=== PATIENT | female | born 1985 | race Caucasian/White ===

== ENCOUNTER 2025-08-25 11:20 | Emergency (ER) | payer OTHER, SELFPAY ==
--- NOTE | ~2025-08-25 | XR_ITS ---
CLINICAL HISTORY: decreased heart rate 2 view chest x-ray. Comparison: None Findings: Normal lung volumes. Lungs are clear. No pneumothorax or pleural effusion. Heart size normal. No passive venous congestion. No midline shift or tracheal deviation. No acute fracture. Impression: 1. No acute cardiopulmonary disease. This document has been electronically signed by: Shivam De La Garza MD on 08/25/2025 12:28:53
[2025-08-25 11:36] VITALS: BP 129/75; PULSE 55; RESP 20; TEMP 36.3; O2SAT 99; BMI 28.3
--- NOTE | 2025-08-25 11:36 | ED_ITS ---
HPI - General Adult General Chief complaint: Dizziness Stated complaint: low heart rate, faint,dizzy Time Seen by Provider: 08/25/25 12:01 Source: patient, RN notes reviewed and old records reviewed Mode of arrival: ambulatory Limitations: no limitations History of Present Illness ED Provider: [facility] narrative: Patient is a 40-year-old female with history of migraines presenting to the emergency department stating that her smart watch woke her at 3 a.m. to notify her that her heart rate was below 40 beats per minute. She also notes that yesterday she was at [facility] and her watch alerted her there as well regarding bradycardia. States she was walking around at the time and did feel somewhat lightheaded and nauseated but chalked it up to being in the sun and having 2 alcoholic drinks. She denies current chest pain, palpitations or dyspnea. She does report having recent intermittent lightheadedness. She has never seen a fireman. MD complaint: bradycardia Onset (ago): day(s) Related Data Allergies Allergy/AdvReac Type Severity Reaction Status Date / Time No Known Allergies Allergy Verified 08/25/25 11:38 Review of Systems 2 Review of Systems: as per hpi Yes all other systems are reviewed and are negative Constitutional: Constitutional: Reports as per HPI [facility] Social History Social History Advance Directives: No Advance Directives Information Provided: No Do you have a plan to hurt others: No Plan Physical Exam ED Vital Signs: Vital Signs - 24 hr 08/25/25 11:36 Temperature 97.4 F Pulse Rate 55 Respiratory Rate 20 Blood Pressure 129/75 Pulse Oximetry 99 Oxygen Delivery Method Room Air BMI result Body Mass Index 28.3 Vital signs have been reviewed and appear to be correct. Blood pressure normal. Heart rate normal. Respiratory rate normal. Temperature normal. Oxygen saturation normal. Const General: cooperative, healthy appearing and no acute distress Orientation/consciousness: oriented to person, oriented to place, oriented to time and patient oriented x3 Limitations: no limitations HENMT Head: Yes normocephalic and Yes atraumatic Ears: external ears normal General nose exam: Normal external nose present Face and sinus: Yes face symmetric Mouth: oropharynx normal and moist mucous membranes Throat: Yes uvula midline Eyes Pupils: Equal, round and reactive pupils present Neck Neck: Yes normal visual inspection and Yes supple Resp Effort & Inspection: normal respiratory effort and able to speak in complete sentences Auscultation: clear to auscultation bilaterally Cardio Rate: regular rate Rhythm: regular rhythm Heart sounds: S1 normal heart sound present and S2 normal heart sound present GI Palpation (GI): Soft to palpation and nontender Auscultation: normoactive bowel sounds General: Yes no CVA tenderness Back/Spine/Pelvis Back: no CVA tenderness Skin General skin exam: elasticity normal and turgor normal Neuro General: oriented to person, oriented to place, oriented to time, patient oriented x3, moves all extremities, no focal motor deficits and CN's II-XI intact bilaterally Cranial nerves: Yes Equal, round and reactive pupils present Cognition (Neuro): normal cognition Extrem General: Yes full ROM, Yes no pedal edema and Yes no calf tenderness Psych Mental Status: mental status grossly normal Affect: normal affect Thought process: Normal thought process present Course Course Course Narrative: Rapid medical examination performed in triage by Carmelita Schroeder PA-C. Patient is a 40 year old assigned female at presenting to the emergency department with episodes of decreased heart rate. Detailed physical exam and review of systems are deferred to the speech and language clinician. EKG, labs, imaging ordered. Patient placed back in the waiting room pending room availability and results. Medical Decision Making Medical Decision Making MDM Narrative: Patient is a 40-year-old female with history of migraines presenting to the emergency department stating that her smart watch woke her at 3 a.m. to notify her that her heart rate was below 40 beats per minute. On exam patient is awake, A+Ox3, mildly bradycardic, VS otherwise WNL, afebrile, normal neurological exam without focal deficits, physical exam findings as above. Given reported symptoms and physical exam findings, initial differential includes but is not limited to cardiac arrhythmia, electrolyte abnormality, abnormal thyroid level. EKG shows NSR with sinus arrhythmia, rate 61bpm. Labs unremarkable, no significant electrolyte abnormalities, negative troponin, normal TSH. X-ray chest notable for no evidence of pneumonia, pneumothorax, cardiomegaly. My interpretation is in agreement with the radiologist's interpretation. Feel patient is stable for discharge with referral to cardiology for likely Holter monitor. Discussed with patient that if she becomes dizzy or lightheaded, she should sit or lay down to prevent fall/secondary injury. Return precautions discussed at bedside. Advised patient to ensure adequate fluid intake, including fluids with electrolytes. Patient verbalized understanding of and agreement with plan. Differential Diagnosis Differential Diagnoses: The differential diagnosis associated with the presentation includes as per [facility] Admission/Observation Consideration of admission/observation: Escalation of care including admission/observation considered Patient would have been admitted to the hospital and transferred to appropriate facility had their clinical presentation warranted hospital admission. Lab Data [facility] Lab Attestation statement: I reviewed the patient's lab results. as per [facility] 08/25/25 11:54 08/25/25 11:54 Labs: Lab Results 08/25/25 Range/Units 11:54 WBC 4.1 L (4.8-10.8) X10*3/uL RBC 4.77 (4.20-5.50) X10*6/uL Hgb 14.0 (12.0-16.0) g/dl Hct 42.5 (37.0-47.0) % MCV 89.1 (80.0-98.0) fL MCH 29.4 (27.0-33.0) pg MCHC 32.9 (31.0-35.0) g/dl RDW 12.4 (11.0-16.0) % Plt Count 274 (160-400) X10*3/uL MPV 9.8 (9.4-12.3) fL Immature Gran % (Auto) 0.0 (0.0-0.4) % Neut % (Auto) 42.2 L (45-73) % Lymph % (Auto) 40.6 H (20-40) % [place] % (Auto) 13.3 H (2-11) % Eos % (Auto) 2.2 (0-4) % Baso % (Auto) 1.7 (0-2) % Lymph # (Auto) 1.7 (1.2-4.9) X10*3/uL [place] # (Auto) 0.6 (0.1-1.2) X10*3/uL Eos # (Auto) 0.1 (0.0-0.4) X10*3/uL Baso # (Auto) 0.1 (0.0-0.2) X10*3/uL Abs Immat Gran (auto) 0.00 (0.00-0.03) X10*3/uL Absolute Neuts (auto) 1.8 L (2.0-8.3) x10*3/uL Absolute Nucleated RBC 0.000 (0.0-0.012) X10*3/uL Nucleated RBC % (auto) 0.0 (0.0-0.2) /100WBC PT 11.2 (10.9-12.4) SEC INR 1.0 (0.9-1.1) Sodium 142 (135-145) mmol/L Potassium 3.8 (3.3-5.1) mmol/L Chloride 108 (96-108) mmol/L Carbon Dioxide 27 (22-29) mmol/L Anion Gap 11 L (12-20) BUN 7 L (9-16) mg/dL Creatinine 0.82 (0.5-1.4) mg/dL Estim Creat Clear Calc 91.2 Estimated GFR > 60 Random Glucose 87 (60-115) mg/dL Calcium 9.1 (8.4-10.2) mg/dL Magnesium 2.1 (1.6-2.6) mg/dL Total Bilirubin 0.6 (0.0-1.0) mg/dL AST 20 (5-31) U/L ALT 15 (0-31) U/L Alkaline Phosphatase 61 (39-117) U/L Troponin I High Sens < 2.7 (<3.5-17.0) ng/L Total Protein 7.0 (6.5-8.0) g/dL Albumin 4.5 (3.5-5.0) g/dL TSH 1.29 (0.32-4.0) uIU/mL Beta HCG, Quant < 2 mIU/mL Independent Interpretation I performed an independent interpretation of an: EKG (normal sinus rhythm with sinus arrhythmia, rate 61bpm, normal [place] interval and QTc) and Plain X-Ray Interpretation: Chest x-ray without evidence of pneumonia, pneumothorax or cardiomegaly Radiology Impression Discussion of test interpretation with radiology: I have reviewed the radiologist's reading. Radiologist Impression: 2 view chest x-ray. Comparison: None Findings: Normal lung volumes. Lungs are clear. No pneumothorax or pleural effusion. Heart size normal. No passive venous congestion. No midline shift or tracheal deviation. No acute fracture. Impression: 1. No acute cardiopulmonary disease. External Record Review External record reviewed: Inpatient record, Office record and Outpatient record Discharge Plan Discharge Clinical Impression: Bradycardia Patient Disposition: Home, Self-Care Instructions: Bradycardia (ED) Additional Instructions: You were evaluated in the emergency today for episodes of bradycardia, which is a slower than normal heart rate. Your evaluation including EKG, labs, chest x- ray did not show evidence of any conditions requiring emergent medical treatment at this time. You are being referred to cardiology for further evaluation of your symptoms. This will likely include wearing a Holter monitor which records your heart rhythm continuously for 1 to several days. Return to the emergency department if you develop chest pain, shortness of breath or difficulty breathing, severe dizziness or lightheadedness, fainting, or any other new or concerning symptoms. We recommend that you follow up with your primary care provider as well. Referrals: [facility] [Provider Group] Referral Note: intermittent bradycardia Clinical Impression: Bradycardia Print Language: Lao
--- NOTE | 2025-08-25 11:37 | ECG_ITS ---
Test Reason : CHEST PAIN Blood Pressure : */* mmHG Vent. Rate : 61 BPM Atrial Rate : 61 BPM P-R Int : 132 ms QRS Dur : 80 ms QT Int : 400 ms P-R-T Axes : 54 45 42 degrees QTcB Int : 402 ms Normal sinus rhythm with sinus arrhythmia Normal ECG No previous ECGs available Referred By: Carmelita Schroeder Electronically Signed By: Melecio Paige
[2025-08-25 11:59] LABS: Hematocrit 42.5 % (37.0-47.0); Hemoglobin 14.0 g/dl (12.0-16.0); Imm Gran Abs Auto 0.00 X10*3/uL (0.00-0.03); Imm Gran Pct Auto 0.0 % (0.0-0.4); Lymphocytes Absolute Auto 1.7 X10*3/uL (1.2-4.9); MANUAL DIFF FLAG NO; Mean Corpuscular HGB Conc 32.9 g/dl (31.0-35.0); Mean Corpuscular Hemoglobin 29.4 pg (27.0-33.0); Mean Corpuscular Volume 89.1 fL (80.0-98.0); NRBC Abs Auto 0.000 X10*3/uL (0.0-0.012); NRBC Pct Auto 0.0 /100WBC (0.0-0.2); Platelet Count 274 X10*3/uL (160-400); Red Blood Count 4.77 X10*6/uL (4.20-5.50); White Blood Count 4.1 X10*3/uL (4.8-10.8)
[2025-08-25 12:05] LABS: INTERNATIONAL NORM RATIO 1.0 (0.9-1.1); Prothrombin Time 11.2 SEC (10.9-12.4)
[2025-08-25 12:14] LABS: Alanine Aminotransferase 15 U/L (0-31); Albumin Level 4.5 g/dL (3.5-5.0); Alkaline Phosphatase 61 U/L (39-117); Anion Gap 11 (12-20); Aspartate Amino Transferase 20 U/L (5-31); Blood Urea Nitrogen 7 mg/dL (9-16); Calcium 9.1 mg/dL (8.4-10.2); Carbon Dioxide 27 mmol/L (22-29); Chloride 108 mmol/L (96-108); Creatinine Clr Calc Pharmacy 91.2; Estimated Glomerular Filt Rate > 60; Magnesium 2.1 mg/dL (1.6-2.6); Potassium 3.8 mmol/L (3.3-5.1); Sodium 142 mmol/L (135-145); Total Protein 7.0 g/dL (6.5-8.0)
[2025-08-25 12:24] LABS: Troponin-I High Sensitivity < 2.7 ng/L (<3.5-17.0)
--- OUTSIDE RECORDS SUMMARY | 2025-08-25 12:24 | XMS_ITS | Encounter Summary ---
Author Organization [facility] Address [address] [place] [id number] Phone Care Team Providers Care Detention Officer Name Role Phone Pablo Bal DO Primary Care Provider Encounter Details Date Type Department Care Team (Late st Contact Info) Description 04/11/2025 Procedure Pass [facility], [address] [address] Social History Tobacco Use Types Packs/Day Years Used Date Smoking Tobacco: Never Passive Smoke Exposure: Current Smokeless Tobacco: Never Alcohol Use Standard Drinks/Week Comments Yes 0 (1 standard drink = 0.6 oz pur e alcohol) soc Child or Family Care Answer Date Record ed Do you have problems with on e of the following making it difficult for you to work, study, or receive health care? No 04/05/2025 Education Answer Date Recorded Are you interested in help w ith more adult education (for example, completing high school, GED, job training, learning the [place] language, technical skills, or developing parenting skills)? No 04/05/2025 Are you concerned about learning? Not on file 04/05/2025 No 04/05/2025 Yes 04/05/2025 Food Answer Date Recorded Within the past 6 months we worried whether our food would run out before we got money to buy more. Never True 04/05/2025 Within the past 6 months the food we bought just didn't last and we didn't have enough money to get more. Never True Residential Stability Answer Date Recor ded What is your housing situation today? I have aubrey sing 04/05/2025 How many times have you moved in the past 12 tue ths? One time 04/05/2025 Paying for Meds Answer Date Recorded Do you have trouble paying for medicines? No 04/05/2025 Paying Utility Bills Answer Date Record ed Do you have trouble paying your heating or elect ricity bill? No 04/05/2025 Transportation Answer Date Recorded Has the lack of transportati on kept you from medical appointments or from getting medications? No 04/05/2025 Unemployment Answer Date Recorded Are you currently unemployed or working on a part-time or temporary basis, and looking for work? No 04/05/2025 Digital Access Answer Date Recorded No 04/05/2025 Yes 04/05/2025 Do you have reliable internet access at home? Ye s 04/05/2025 Do you have a device (e.g., phone, tablet, computer) with a working camera? Yes 04/05/2025 Intimate Partner Violence Answer Date R ecorded Denied Basic Needs Not on file 04/05/2025 In the past 12 months have y ou been in a relationship with a person who hurts, threatens, or tries to control you? No 04/05/2025 Worried food would run out Not on file 04/05 In the past 12 months have y ou been in a relationship with a person who hurts, threatens, or tries to control you? No 04/05/2025 Comments No Sex and Gender Information Value Date Recorded Sex Assigned at Female 08/14/2024 3:45 PM EDT Legal Sex Female 9:13 PM EDT Gender Identity Female 08/14/2024 3:45 PM EDT Sexual Orientation Straight 08/14/2024 3: 45 PM EDT documented as of this encounter Plan of Treatment Upcoming Encounters Date Type Department Care Team (Late st Contact Info) Description 05/26/2026 8:00 AM EDT Office [facility] [address] [place] [address] [place] [address] Pablo Bal DO [address] [facility] [place] [address] [email or web address] documented as of this encounter Visit Diagnoses Not on filedocumented in this encounter Additional Health Concerns Assessment Noted Time PHQ-2 Depression Total Score: 0 04/05/20 8:08 AM EDT documented as of this encounter Care Teams Detention Officer Relationship Specialty Start Date End Date Pablo Bal DO [address] [place] [address], [address] [place] [address] [email or web address] PCP - General Internal Medicine 04/11/25 documented as of this encounter Additional Source Comments The information contained in this document represents components of the legal health record. It is not the complete legal health record.[facility]
--- OUTSIDE RECORDS SUMMARY | 2025-08-25 12:24 | XMS_ITS | Clinical Summary ---
Author Organization [facility] Address [address] [facility] [address] [place] [address] Phone Care Team Providers Care Strings Teacher Name Role Phone Pablo Bal DO Primary Care Provider Allergies Active Allergy Reactions Criticality Noted Date Comments Penicillins 09/25/2021 Medications 12/03, , 1 mg-20 mcg (21)/75 mg (7) per tablet Take 1 tablet by mouth daily. 84 tablet 3 09/03/2024 Active ergocalciferol (DRISDOL) 50,000 unit capsule Take 1 capsule (50,000 Units total) by mouth once a week. 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 Migraine w/ aura history means combined estrogen-progesterone OCPs are contraindicated. Only option are POPs or depo. Will need to set up telemed visit to discuss control options further. Overweight with body mass index (BMI) 25.0-29.9 09/27/2021 Assessment & Plan (10/27/2021 8:07 PM EST): Dietary counseling, discussed establishing a regular exercise routine, and counseling on maintaining a healthy weight Chronic right-sided low back pain with right-sheila ed sciatica 09/27/2021 Assessment & Plan (04/13/2025 4:46 PM EDT): Chronic low back pain-stable. Continue monitoring. Assessment & Plan (09/27/2021 12:42 PM EST): Symptoms currently stable Vitamin D insufficiency 09/25/2021 Assessment & Plan (04/13/2025 4:47 PM EDT): Recheck vitamin D levels Assessment & Plan (10/27/2021 7:57 PM EST): Take 600-800 IU of vitamin D2 or D3 daily Polyarthritis 09/25/2021 Overview (10/27/2021): Elevated CRP, ESR 11, DANIEL +1:80. TSH 1.35. Prior PCP tested for Lyme which was negative. Assessment & Plan (04/13/2025 4:46 PM EDT): Previously borderline elevations in DANIEL, has not had rheumatoid factor checked. Order placed today. Continue monitoring. Assessment & Plan (10/27/2021 8:01 PM EST): Elevated CRP, ESR 11, DANIEL +1:80. TSH1.35. Prior PCP tested for Lyme which was negative. Discussed further evaluation by rheumatology Assessment & Plan (09/27/2021 12:40 PM EST): Workup reportedly led to MS testing via neurology- Lyme testing was negative. Possibly a chronic inflammatory polyarthritis from history- obtain a few labs to work this up. Await medical records. Migraine with aura and witho ut status migrainosus, not intractable 09/25/2021 Assessment & Plan (04/13/2025 4:46 PM EDT): Migraine has possibly not been fully evaluated. We discussed obtaining MRI, order placed today. Will continue monitoring. Has been able to manage with OTC medication such as Excedrin. Consider controller if worsening. Assessment & Plan (09/27/2021 12:34 PM EST): Associated with left eye aura. Present since childhood. Took Imitrex as child. -Currently symptoms stable, gets migraine q monthly with PRN Excedrin. Continue Excedrin PRN. Resolved Problems Problem Noted Date Diagnosed Date Resolved Date Annual physical exam 10/27/2021 025 Assessment & Plan (10/27/2021 8:13 PM EST): USPSTF reccomendations A&B for age and gender reviewed, orders placed as appropriate. Reviewd AC Immunization schedule. Influenza declined despite counseling. Tdap today. Needs booster 3rd dose COVID-19 vaccine. Physical exam including breast, speculum and bimanual exam wnl. Pap cytology+HPV cotesting collected and sent. Influenza vaccination declined by patient 09/27/2021 04/11/2025 Immunizations Immunization Administration Dates Next Due DTP 02/02/1991, 7,1986,1985,1986 Hepatitis B 04/13/1998,11/13/1997,10/13/1997 Hib,HbOC 01/23/1988 IPV 02/02/1991, 7,1986,1985 MMR 04/22/1998,04/23/1987 Td (adult),2 Lf Tetanus Toxo id, PF, Adsorbed 04/27/2000 Tdap 10/27/2021 Family History Medical History Relation Comments Basal cell carcinoma Father Osteoarthritis Father Diabetes type I Maternal Aunt Rheumatoid arthritis Maternal Grandfather Multiple sclerosis Mother age 63 Rheumatoid arthritis Mother Atrial fibrillation Unspecified Stroke Unspecified Heart attack Neg Hx Relation Status Comments Father Alive Maternal Aunt Maternal Grandfather Mother (Age 63) Unspecified Social History Tobacco Use Types Packs/Day Years Used Date Smoking Tobacco: Never Passive Smoke Exposure: Current Smokeless Tobacco: Never Tobacco Cessation:Counseling Given: Not Answered Alcohol Use Standard Drinks/Week Comments Yes 0 [...] high school, GED, job training, learning the Somali language, technical skills, or developing parenting skills)? [...] you moved in the past 12 tue th? One time 04/05/2025 Paying for Meds Answer [...] Orientation Straight 08/14/2024 3: 45 PM EDT Last Filed Vital Signs Vital Sign Reading Time Taken Comments Blood Pressure 124/82 05/23/2025 8:32 AM EDT Pulse 50 05/23/2025 8:32 AM EDT Temperature 36.4 C (97.5 F) 05/23/2025 8:32 AM EDT Respiratory Rate - - Oxygen Saturation 99% 05/23/2025 8:32 AM EDT Inhaled Oxygen Concentration - - Weight 73.9 kg (162 lb 14.4 oz) 05/23/2025 8:32 AM EDT Height 162.6 cm (5' 4.02 ) 05/23/2025 8:32 AM ED T Body Mass Index 27.95 05/23/2025 8:32 AM EDT Plan of Treatment Upcoming Encounters Date Type Department Care Team (Late st Contact Info) Description 05/26/2026 8:00 AM EDT [facility] [address] [place] [address] [place] [address] Pablo Bal DO [address] [facility], [address] [place] [address] [email or web address] Health Maintenance Due Date Last Done Comments INFLUENZA VACCINE (#1) 2025 COVID-19 VACCINE (2024-2 6 season) 2025 09/05/2021, 08/08/2021 DEPRESSION SCREENING 05/22/2026 05/22/2025 PAP SMEAR 10/27/2026 10/27/2021, 02/24/2016 SCREENING FOR DIABETES 04/17/2028 , 04/17/2025, 02/24/2016 Adult Td,Tdap Booster 10/27/2031 10/27/2021 , 04/27/2000 HIB VACCINES Completed 01/23/1988 HEPATITIS C SCREENING Completed 09/25/2021 HIV ONE-TIME SCREENING (18-6 5 YEARS) Completed 09/25/2021 SMOKING STATUS SCREENING (On ce After 26 Yrs) Completed 05/23/2025 HEPATITIS A VACCINES Aged Out No long er eligible based on patient's age to complete this topic MENINGOCOCCAL VACCINES (ACWY) Aged Out No longer eligible based on patient's age to complete this topic MENINGOCOCCAL VACCINES (B) Aged Out N o longer eligible based on patient's age to complete this topic PNEUMOCOCCAL VACCINES (0-49 years) Aged Out No longer eligible b ased on patient's age to complete this topic Medical Devices Not on file Procedures Procedure Name Priority Date/Time Associated Diagnosis Comments PAP TEST Routine 10/27/2021 12:00 AM EST HEPATITIS C ANTIBODY, QUALITATIVE Routine 09/25/2021 3:26 PM EST Need for hepatitis C screening test Polyarthritis OUTSIDE GLUCOSE FASTING Routine 02/24/2016 from Last 3 Months or Most Recently Relevant to Health Maintenance Results * Pap Smear (10/27/2021 12:00 AM EST) 10/27/2021 10/28/2021 10: 17 AM EST Narrative SEE NARRATIVE - 11/03/2021 4:25 PM EST [address] [address] [employer] Driver: Xochitl Medina MD CORE STACKER Cytology Report FINAL DIAGNOSIS A. PAP SMEAR (SUREPATH) CE: SPECIMEN ADEQUACY: Satisfactory for evaluation; transformation zone present. INTERPRETATION: NEGATIVE FOR INTRAEPITHELIAL LESION OR MALIGNANCY. Reactive changes. Electronically Signed Out By: MD Diony Marinelli CT(ASCP) By his/her signature above, the pathologist listed as making the Final Diagnosis certifies that he/she has personally reviewed this case and confirmed or corrected the diagnosis. The Pap test is a screening test primarily for squamous cancers and precursors and has associated false-negative and false-positive results. New technologies such as liquid-based preparations may decrease but will not eliminate all false-negative results. Regular sampling and follow-up of unexplained clinical signs and symptoms are recommended to minimize false negative results. PROCEDURES/ADDENDA HPV Testing (Requested) Ordered Date: 10/28/2021 A. PAP SMEAR (SUREPATH) CE: Human Papilloma Virus Test Negative for high-risk human papillomavirus types 16, 18, 45 and the Other high risk probe set (Includes 31, 33, 35, 39, 51, 52, 56, 58, 59, 66, 68) by [employer] Onclarity HR-HPV analysis. Clinical correlation is advised. This HPV test was performed at [facility], [address] [place] [address]. This test has been FDA approved for SurePath cervical cytology specimens. The accuracy and precision of this test for all other specimen sources has been verified in the Cytopathology Laboratory of the [facility] and has not been cleared or approved by the U.S. Food and Drug Administration. Clinical correlation is advised. CLINICAL HISTORY Date of Last Menstrual Period: Not Provided Menstrual History: Unknown Other Clinical Conditions: Screening Pap SPECIMEN SOURCE A: PAP SMEAR (SUREPATH) CE Patient Name: BETH MTZ : 1985 (Age: 36) Sex: F Institution: [facility] Location: [facility] Date of Collection: 10/27/2021 Date of Reported: 11/03/2021 16:25 Results to: Cecile Gonzalez MD Cecile Gonzalez MD CYTOLOGY ORDERABLES Final Result Performing Organization Address City/[facility] Co de Phone Number SEE NARRATIVE * Hepatitis C antibody, qualitative (09/25/2021 3:26 PM EST) HCV NON-REACTIV E NON-REACTI VE [facility] Blood 09/25/2021 3:26 PM EST 09/25/2021 3:53 PM EST Cecile Gonzalez MD LAB BLOOD ORDERABLES Final Result Performing Organization Address City/[facility] Co de Phone Number [address] [address] * Outside Glucose,Fasting (02/24/2016) [facility] Signature Glucose, fasting - External 93 65 - 99 mg/dL us Historical Provider LAB BLOOD ORDERABLES Cece willis Result from Last 3 Months or Most Recently Relevant to Health Maintenance Insurance [facility] [employer] NET PARTIAL Member Subscriber Plan / Payer (Ef fective 2021-Present) Name:DeshawnBeth keane Relation to Subscriber:Self Name:Beth Mtz Payer ID:Not on file Group ID:Not on file Type:Medicaid Address: [address] HMO [facility] [employer] NET PARTIAL Member Subscriber Plan / Payer (Ef fective 2021-Present) Name:Deshawn Beth Relation to Subscriber:Self Name:DeshawnBeth keane Payer ID:Not on file Group ID:Not on file Type:Medicaid Address: [address] HMO Member Subscriber Plan / Payer (Ef fective 2021-) Name:Deshawn Beth Relation to Subscriber:Self Name:Deshawn Beth Payer ID:Not on file Group ID:Not on file Type:Medicaid Address: [address] HMO Member Subscriber Plan / Payer (Ef fective 2021-Present) Name:Deshawn Beth Relation to Subscriber:Self Name:Deshawn Beth Payer ID:Not on file Group ID:Not on file Type:Medicaid Address: [address] HMO Member Subscriber Plan / Payer (Ef fective 2021-Present) Name:Beth Mtz Relation to Subscriber:Self Name:Beth Mtz Payer ID:Not on file Group ID:Not on file Type:Medicaid Address: [address] Member Subscriber Plan / Payer (Ef fective 2021-Present) Name:Beth Mtz Relation to Subscriber:Self Name:Beth Mtz Payer ID:Not on file Group ID:Not on file Type:Medicaid Address: [address] Care Teams Strings Teacher Relationship Specialty Start Date End Date Pablo Bal DO [address] [place] [address], [address] [place] [address] [email or web address] PCP - General Internal Medicine 04/11/25 Additional Source Comments The information contained in this document represents components of the legal health record. It is not the complete legal health record.[facility]
--- OUTSIDE RECORDS SUMMARY | 2025-08-25 12:24 | XMS_ITS | Encounter Summary ---
Author Organization [facility] Address [address] [email or web address] [facility] [address] [place] [address] Phone Care Team Providers Care Shanker Out Name Role Phone Pcp, Unknown Primary Care Provider Pablo Cheng DO Primary Care Provider Encounter Details Date Type Department Care Team (Late st Contact Info) Description 09/21/2023 Ancillary Orders [facility], X-Ray - [address] [address] Wiley Kendall MD [address] [place] [address], [address] [place] [address] [email or web address] Unspecified superficial injury of unspecified thumb, initial encounter Social History Tobacco Use Types Packs/Day Years Used Date Smoking Tobacco: Never Smokeless Tobacco: Never Alcohol Use Standard Drinks/Week Comments Yes 0 (1 standard drink = 0.6 oz pur e alcohol) 2 a mnths Child or Family Care Answer Date Record ed Do you have problems with on e of the following making it difficult for you to work, study, or receive health care? No 09/25/2021 Education Answer Date Recorded Are you interested in help w ith more adult education (for example, completing high school, GED, job training, learning the Maldivian language, technical skills, or developing parenting skills)? No 09/25/2021 Food Answer Date Recorded Within the past 6 months we worried whether our food would run out before we got money to buy more. Never True 09/25/2021 Within the past 6 months the food we bought just didn't last and we didn't have enough money to get more. Never True Residential Stability Answer Date Recor ded What is your housing situation today? I have aubrey del angel 09/25/2021 How many times have you move d in the past 12 months? Zero (I did not move) 09/25/2021 Paying for Meds Answer Date Recorded Do you have trouble paying for medicines? No 09/25/2021 Paying Utility Bills Answer Date Record ed Do you have trouble paying your heating or elect ricity bill? No 09/25/2021 Transportation Answer Date Recorded Has the lack of transportati on kept you from medical appointments or from getting medications? No 09/25/2021 Unemployment Answer Date Recorded Are you currently unemployed or working on a part-time or temporary basis, and looking for work? No 09/25/2021 Digital Access Answer Date Recorded No 04/11/2023 No 04/11/2023 Reliable internet access at home? Not on file 04/11/2023 Device with a working camera? Not on file Comments Unknown Sex and Gender Information Value Date Recorded [...] EDT [facility] [address] [place] [address] [place] [address] Pablo Bal DO [address] [facility], [address]nd [place] [address] [email or web address] documented as of this encounter Results * XR HAND 3 OR MORE VIEWS (RIGHT) (09/21/2023 12:36 PM EST) Anatomical Region Laterality Modality Hand Right Computed Radiogr aphy 09/22/2023 10:1 9 AM EST Impressions 09/22/2023 10:20 AM EST No acute bony abnormality. Narrative 09/22/2023 10:20 AM EST XR HAND 3 OR MORE VIEWS (RIGHT) COMPARISON: None HISTORY: Trauma FINDINGS: No fracture. Normal alignment. Normal joint spaces. No soft tissue swelling. Procedure Note Pablo Morales MD - 09/22/2023 XR HAND 3 OR MORE VIEWS (RIGHT) COMPARISON: None HISTORY: Trauma FINDINGS: No fracture. Normal alignment. Normal joint spaces. No soft tissueswelling. IMPRESSION: No acute bony abnormality. us Wiley Kendall MD IMG XR UPPER EXTREMITY Final Re sult documented in this encounter Visit Diagnoses Diagnosis Unspecified superficial injury of unspecified thumb, initial encounter Unspecified superficial injury of unspecified thumb, initial encounter documented in this encounter Additional Health Concerns Assessment Noted Time PHQ-2 Depression Total Score: 0 10/27/20 21 8:28 AM EST documented as of this encounter Care Teams Shanker Out Relationship Specialty Start Date End Date Pcp, Unknown PCP - General 09/21/23 04/10/25 Pablo Bal DO [address] [place] [address], [address] [place] [address] [email or web address] PCP - General Internal Medicine 04/11/25 documented as of this encounter Additional Source Comments The information contained in this document represents components of the legal health record. It is not the complete legal health record.[facility]
--- OUTSIDE RECORDS SUMMARY | 2025-08-25 12:24 | XMS_ITS | Encounter Summary ---
Author Organization [facility] Address [address] [place] [address] Phone Care Team Providers Care Dry House Attendant Name Role Phone Shalonda Dumont MD Primary Care Provider Unava ilable Encounter Details Date Type Department Care Team (Late st Contact Info) Description 06/30/2017 Conversion Encounter [facility] - [address] [address] Social History Tobacco Use Types Packs/Day Years Used Date Smoking Tobacco: Never Assessed Comments Unknown Sex and Gender Information Value Date Recorded Sex Assigned at Not on file Legal Sex Female 4:13 PM EDT Gender Identity Not on file Sexual Orientation Not on file documented as of this encounter Plan of Treatment Not on file documented as of this encounter Visit Diagnoses Not on filedocumented in this encounter Care Teams Dry House Attendant Relationship Specialty Start Date End Date Shalonda Dumont MD PCP - General 06/24/17 documented as of this encounter
--- OUTSIDE RECORDS SUMMARY | 2025-08-25 12:24 | XMS_ITS | Clinical Summary ---
Author Organization [facility] Address [address] [place] [address] Phone Care Team Providers Care Suede Brusher Name Role Phone Shalonda Dumont MD Primary Care Provider Unava ilable Immunizations Immunization Administration Dates Next Due DTP 02/02/1991, 7,1986,1985,1986 Hep B, ped/adol 04/13/1998,11/13/1997,10/13/1997 Hib (HbOC) 01/23/1988 IPV 02/02/1991, 7,1986,1985 MMR 04/22/1998,04/23/1987 Td (adult) (MBL), 2 Lf tetan us toxoid, PF, adsorbed 04/27/2000 Unknown Vaccine 05/13/2009,12/03/2004,04/13/1993 Social History Tobacco Use Types Packs/Day Years Used Date Smoking Tobacco: Never Assessed Comments Unknown Sex and Gender Information Value Date Recorded Sex Assigned at Not on file Legal Sex Female 4:13 PM EDT Gender Identity Not on file Sexual Orientation Not on file Plan of Treatment Health Maintenance Due Date Last Done Comments Varicella Vaccines (1 of 2 - 13+ 2-dose series) 1999 DTaP,Tdap,and Td Vaccines (6 - Tdap) 04/28/2000 04/27/2000, 02/02/1991, 07/30/1987, Additional history exists HPV Vaccines (1 - 3-dose SCDM series) 2013 Influenza Vaccines (#1) 2025 COVID-19 Vaccine ( - 2024- season) 2025 HIB Vaccines Completed 01/23/1988 IPV Vaccines Completed 02/02/1991, 07/15, 1986, Additional history exists Hepatitis B Vaccines Completed 04/13/1998, 11/13/1997, 10/13/1997 MMR Vaccines Completed 04/22/1998, 04/23/1987 Hepatitis A Vaccines Aged Out No long er eligible based on patient's age to complete this topic Men B Vaccine Aged Out No longer elig ible based on patient's age to complete this topic Meningococcal Vaccine Aged Out No clark stephanie eligible based on patient's age to complete this topic Pneumococcal Vaccine Aged Out No long er eligible based on patient's age to complete this topic Care Teams Suede Brusher Relationship Specialty Start Date End Date Shalonda Dumont MD PCP - General 06/24/17
[2025-08-25 13:57] VITALS: BP 104/66; PULSE 53; RESP 15; TEMP 36.4; O2SAT 97
[2025-08-25 13:59] VITALS: BP 104/66; PULSE 53; RESP 15; TEMP 36.4; O2SAT 97
== END 2025-08-25 14:00 | disposition home or self-care (01) ==
PROVIDERS: Physician Assistant Medical; Registered Nurse Emergency; Emergency Provider Emergency Medicine; PCP Pediatrics
DX: R00.1 Bradycardia, unspecified (principal); R07.9 Chest pain, unspecified; R42 Dizziness and giddiness
CPT/HCPCS: 36415; 71046; 80053; 83735; 84443; 84484; 84702; 85025; 85610; 93005; 99283; 99285

== ENCOUNTER → 2025-08-25 11:37 | Outpatient (BNV) | payer OTHER, SELFPAY | PROVIDERS: Emergency Provider Emergency Medicine; PCP Pediatrics; Visit Provider Radiology Diagnostic Radiology | DX: R00.1 Bradycardia, unspecified (principal) | CPT/HCPCS: 71046 ==

== ENCOUNTER → 2025-08-25 11:37 | Outpatient (BNV) | payer OTHER, SELFPAY | PROVIDERS: Emergency Provider Emergency Medicine; PCP Pediatrics; Visit Provider Internal Medicine Cardiovascular Disease | DX: R07.9 Chest pain, unspecified (principal) | CPT/HCPCS: 93010 ==